=== PATIENT | female | born 1980 | race Caucasian/White ===

== ENCOUNTER 2021-11-07 08:25 | Day surgery (SDC) | payer OTHER ==
[~2021-11-07] VITALS: Ht 170.2 cm; Wt 72.7 kg
[~2021-11-07 08:25] MED LIST: ALBU90OI INH; Ativan0.5 MG PO; CIPR500 PO; CYCL10 PO; DOCU100 PO; DULO60 PO; HYDACE5 PO; LISHYD2025 PO; Monodox100 MG PO; NAPR500 PO; NAPR550 PO; ONDA4ODT MM; Omeprazole20 M1 PO; SPACE CHAMBER1 EACH MC; VITAMIN D5000 UNIT PO; VITAMINS
[2021-11-07] MEDS ORDERED: ASPI325 (08:54)
[2021-11-07] MEDS ORDERED: LAMO25 (08:55)
[2021-11-07] MEDS ORDERED: HYDR10 (08:56)
== END 2021-11-07 11:05 | disposition home or self-care (01) ==
LOC: ORSCSDS 08:25
PROVIDERS: Student in an Organized Health Care Education/Training Program
PROC: 0DBP8ZX Excision of Rectum, Via Natural or Artificial Opening Endoscopic, Diagnostic (ICD-10-PCS; principal; 2021-11-07 10:00)
PROC: 0DBH8ZX Excision of Cecum, Via Natural or Artificial Opening Endoscopic, Diagnostic (ICD-10-PCS; principal; 2021-11-07 10:00)
PROC: 0DBK8ZX Excision of Ascending Colon, Via Natural or Artificial Opening Endoscopic, Diagnostic (ICD-10-PCS; principal; 2021-11-07 10:00)
PROC: 0DBN8ZX Excision of Sigmoid Colon, Via Natural or Artificial Opening Endoscopic, Diagnostic (ICD-10-PCS; principal; 2021-11-07 10:00)
DX: K92.1 Melena (principal); D12.0 Benign neoplasm of cecum; D12.2 Benign neoplasm of ascending colon; K62.1 Rectal polyp; K59.09 Other constipation; K57.30 Diverticulosis of large intestine without perforation or abscess without bleeding; K64.8 Other hemorrhoids; K64.4 Residual hemorrhoidal skin tags; K62.89 Other specified diseases of anus and rectum; Z87.891 Personal history of nicotine dependence; I10 Essential (primary) hypertension; F41.1 Generalized anxiety disorder; Z79.899 Other long term (current) drug therapy
CPT/HCPCS: 88305; J2250; J2704; J7120

== ENCOUNTER → 2022-02-07 | Outpatient (CLI) | payer OTHER ==
[~2022-02-07] MED LIST changes: +ASPI325; +HYDR10; +LAMO25
[2022-02-08 15:10] LABS: HPV 16 Negative (Negative); HPV 18 Negative (Negative); HPV OTHER HR TYPES Negative (Negative)
== END | disposition home or self-care (01) ==
LOC: LAB SHORT 11:13 → LAB 11:13
PROVIDERS: Obstetrics & Gynecology
DX: N93.9 Abnormal uterine and vaginal bleeding, unspecified (principal)
CPT/HCPCS: 87624; G0123

== ENCOUNTER → 2024-06-03 | Outpatient (CLI) | payer OTHER | LOC: LAB SHORT 07:49 → LAB 07:49 | DX: L57.0 Actinic keratosis (principal); L98.9 Disorder of the skin and subcutaneous tissue, unspecified | CPT/HCPCS: 88305; 88312 ==